=== PATIENT | female | born 1980 | race Caucasian/White ===

== ENCOUNTER 2016-09-08 16:03 | Emergency (ER) | payer OTHER ==
[~2016-09-08 16:03] MED LIST: AMOXICILLIN PO; VICODIN 5/500 T1 TAB PO
== END 2016-09-08 16:17 | disposition home or self-care (01) ==
LOC: CFTX 16:03
DX: K02.9 Dental caries, unspecified (principal); F17.210 Nicotine dependence, cigarettes, uncomplicated
CPT/HCPCS: 99282

== ENCOUNTER 2016-11-30 15:31 | Emergency (ER) | payer OTHER | END 2016-11-30 19:10 | disposition home or self-care (01) | LOC: CED 15:31 | DX: Z00.8 Encounter for other general examination (principal); F17.200 Nicotine dependence, unspecified, uncomplicated | CPT/HCPCS: 99283 ==